=== PATIENT | male | born 1975 | race American Indian/Alaskan Native ===

== ENCOUNTER 2021-04-23 18:16 | Emergency (ER) | payer SELFPAY ==
[2021-04-23 19:58] VITALS: BP 125/78
[2021-04-23] MEDS ORDERED: oxyCODONE /ACETAMINOPHEN 5-325MG TAB PO ONE (20:30)
[2021-04-23] MEDS ORDERED: HYDROmorphone 1 MG/1 ML INJ IM ONE (21:36)
--- NOTE | 2021-04-23 22:17 | Emergency Department Report ---
ED General Adult HPI - General Chief complaint: Urogenital-Male Stated complaint: TESTICULAR PAIN Time Seen by Provider: 04/23/21 21:04 Source: patient Mode of arrival: Ambulatory Limitations: No Limitations - History of Present Illness Initial comments: 46-year-old -[place] male patient presents with complaints of testicular and penile pain and swelling x2 days. Patient states he has a metal cock ring stuck in place and now has developed swelling and pain. He denies any difficulty urinating or abdominal pain. No fever/chills/sweats. No past medical history. Patient states NKDA Severity scale (0 -10): 5 - Related Data Previous Rx's Medication Instructions Recorded Last Taken Type Ciprofloxacin HCl [Cipro] 500 mg PO BID 10 Days tablet 09/24/13 Unknown Rx Allergies Allergy/AdvReac Type Severity Reaction Status Date / Time No Known Allergies Allergy Verified 04/23/21 20:00 ED Review of Systems ROS: Stated complaint: TESTICULAR PAIN Other details as noted in HPI Constitutional: denies: chills, fever Gastrointestinal: denies: abdominal pain, nausea, vomiting Genitourinary: testicular pain. denies: dysuria, frequency, hematuria, discharge Skin: denies: change in color ED Past Medical Hx - Past Medical History Hx HIV: Yes - Surgical History Past Surgical History?: No - Social History Smoking Status: Current Every Day Smoker Substance Use Type: None - Medications Home Medications: Home Medications Medication Instructions Recorded Confirmed Last Taken Type Ciprofloxacin HCl [Cipro] 500 mg PO BID 10 Days tablet 09/24/13 Unknown Rx ED Physical Exam - General Limitations: No Limitations General appearance: alert, in no apparent distress - Head Head exam: Present: atraumatic, normocephalic - Eye Eye exam: Present: normal appearance. Absent: scleral icterus - Respiratory Respiratory exam: Absent: respiratory distress - Cardiovascular Cardiovascular Exam: Present: regular rate - GI/Abdominal GI/Abdominal exam: Present: soft. Absent: tenderness - exam: Present: other (Thick constricting metal ring noted above the penis and testicles; significant swelling noted to the testicles bilaterally and penile shaft) - Extremities Exam Extremities exam: Present: full ROM - Neurological Exam Neurological exam: Present: alert, oriented X3 - Psychiatric Psychiatric exam: Present: normal affect, normal mood - Skin Skin exam: Present: warm, dry, intact, normal color. Absent: rash ED Course Vital Signs 04/23/21 19:57 Temperature 98.7 F Pulse Rate 99 H Respiratory 18 Rate Blood Pressure 125/78 O2 Sat by Pulse 98 Oximetry ED Medical Decision Making - Medical Decision Making 46-year-old -[place] male patient presents with complaints of testicular and penile pain and swelling x2 days. Patient states he has a metal cock ring stuck in place and now has developed swelling and pain. He denies any difficulty urinating or abdominal pain. No fever/chills/sweats. No past medical history. Patient states NKDA Discussed patient in detail with Dr. Cohen who also examined patient. After calling multiple facilities and specialist, patient was accepted by [facility] in [facility]. Patient accepted by Dr. Miller Critical care attestation.: If time is entered above; I have spent that time in minutes in the direct care of this critically ill patient, excluding procedure time. ED Disposition Clinical Impression: Penile edema, Scrotal edema, Foreign body Disposition: 51 HOSPICE/MEDICAL FACILITY Is pt being admited?: No Condition: Serious Referrals: PRIMARY CARE, [Primary Care Provider] - 3-5 Days
--- NOTE | 2021-04-23 22:18 | Emergency Department Report ---
ED Male HPI - General Chief complaint: Urogenital-Male Stated complaint: TESTICULAR PAIN Time Seen by Provider: 04/23/21 21:04 Source: patient Mode of arrival: Ambulatory Limitations: No Limitations - History of Present Illness Initial comments: Patient is a 46-year-old gentleman who is presenting with urological emergency. Patient used a "cock ring" for sexual purposes and he now developed some swelling to both his penis and scrotum and is unable to remove the ring. Ring is made from [employer] and is approximately 2 cm wide. Patient is developed a large amount of swelling to both his penis and his scrotum. Pain estimated at a 7 out of 10 in severity. He is able to urinate. Denies any fevers at this time. - Related Data Previous Rx's Medication Instructions Recorded Last Taken Type Ciprofloxacin HCl [Cipro] 500 mg PO BID 10 Days tablet 09/24/13 Unknown Rx Allergies Allergy/AdvReac Type Severity Reaction Status Date / Time No Known Allergies Allergy Verified 04/23/21 20:00 ED Review of Systems ROS: Stated complaint: TESTICULAR PAIN Other details as noted in HPI Comment: All other systems reviewed and negative ED Past Medical Hx - Past Medical History Hx HIV: Yes - Surgical History Past Surgical History?: No - Social History Smoking Status: Current Every Day Smoker Substance Use Type: None - Medications Home Medications: Home Medications Medication Instructions Recorded Confirmed Last Taken Type Ciprofloxacin HCl [Cipro] 500 mg PO BID 10 Days tablet 09/24/13 Unknown Rx ED Physical Exam - General Limitations: No Limitations General appearance: alert, in no apparent distress - Head Head exam: Present: atraumatic, normocephalic - Eye Eye exam: Present: normal appearance - ENT ENT exam: Present: normal exam, mucous membranes moist - Neck Neck exam: Present: normal inspection - Respiratory Respiratory exam: Present: normal lung sounds bilaterally. Absent: respiratory distress, wheezes, rales, rhonchi - Cardiovascular Cardiovascular Exam: Present: regular rate, normal rhythm, normal heart sounds. Absent: systolic murmur, diastolic murmur, rubs, gallop - GI/Abdominal GI/Abdominal exam: Present: soft, normal bowel sounds. Absent: distended, tenderness, guarding, rebound - Rectal Rectal exam: Present: deferred - exam: Present: other (Patient with a large metal ring at the base of the pen is which also wraps around the under portion of the scrotum. Patient with testicular and penile edema. Does not appear as though the patient is erect at this time.) - Extremities Exam Extremities exam: Present: normal inspection - Back Exam Back exam: Present: normal inspection - Neurological Exam Neurological exam: Present: alert, oriented X3 - Psychiatric Psychiatric exam: Present: normal affect, normal mood - Skin Skin exam: Present: warm, dry, intact, normal color. Absent: rash ED Course Vital Signs 04/23/21 19:57 Temperature 98.7 F Pulse Rate 99 H Respiratory 18 Rate Blood Pressure 125/78 O2 Sat by Pulse 98 Oximetry ED Medical Decision Making - Medical Decision Making Discussed the case with [facility] who also specializes in the removal of foreign bodies. Initially they stated that they did not have any beds locally. The physician flowers salesperson who is dealing with these type of foreign bodies is actually in [facility]. Discussed the case with our general surgeon as well as her neurosurgeon to see if we had the appropriate equipment at our facility which we do not. Likely [facility] has contacted us again and have made arrangements to fly the patient to [facility] to have the foreign body removed. Hopefully there is not any necrosis to the patient's scrotum or penis which is developed since the patient has had. "Cock ring" in place for approximately 48 hours. Patient given pain medication. Critical care attestation.: If time is entered above; I have spent that time in minutes in the direct care of this critically ill patient, excluding procedure time. ED Disposition Clinical Impression: Penile edema, Scrotal edema, Foreign body Disposition: 51 HOSPICE/MEDICAL FACILITY Is pt being admited?: No Does the pt Need Aspirin: No Condition: Serious Referrals: PRIMARY CARE, [Primary Care Provider] - 3-5 Days Time of Disposition: 22:20
== END 2021-04-24 09:33 | disposition hospice, inpatient (51) ==
LOC: ED 18:16
DX: S30.852A Superficial foreign body of penis, initial encounter (principal); N48.89 Other specified disorders of penis; N49.2 Inflammatory disorders of scrotum; F17.200 Nicotine dependence, unspecified, uncomplicated; X58.XXXA Exposure to other specified factors, initial encounter; Y93.89 Activity, other specified; Y92.89 Other specified places as the place of occurrence of the external cause; Y99.8 Other external cause status
CPT/HCPCS: 96372; 99282; J1170